=== PATIENT | male | born 1950 | race Caucasian/White ===

== ENCOUNTER 2017-12-12 10:54 | Outpatient (CLI) | payer OTHER, MEDICARE ==
--- NOTE | 2017-12-12 13:13 | ULT ---
ULTRASOUND ABDOMEN: Date: 12/12/17 HISTORY: Epigastric pain. Left upper quadrant pain. FINDINGS: The liver measures 19.4 cm in length with increased echogenicity consistent with fatty infiltration. No focal mass or intrahepatic ductal dilatation is seen. The spleen measures 12.2 cm in length with s mall echogenic foci indicative of chronic granulomatous disease. There is sludge in the gallbladder w ith gallbladder wall thickening measuring about 4.0 mm. No gallstones or pericholecystic fluid are se en. Common duct measures 7.0 mm in diameter. There is a 1.0 cm in the superior pole of the left kidne y. The right kidney and visualized portions of the IVC and aorta (proximal not seen) are unremarkable . The pancreas is not well visualized due to overlying bowel gas. No free fluid is identified. IMPRESSION: 1. Fatty liver. 2. Gallbladder sludge with wall thickening, but no evidence of gallstones. Evaluation with HIDA scan would be helpful. 3. Left renal cyst. POS: [facility]
== END 2017-12-12 10:55 | disposition home or self-care (01) ==
LOC: ULT 10:54
PROVIDERS: ATTEND Internal Medicine
DX: R10.12 Left upper quadrant pain (principal); K76.0 Fatty (change of) liver, not elsewhere classified; N28.1 Cyst of kidney, acquired; K82.8 Other specified diseases of gallbladder; Z79.899 Other long term (current) drug therapy; E78.01 Familial hypercholesterolemia; D64.9 Anemia, unspecified
CPT/HCPCS: 36415; 76700; 80076; 85025

== ENCOUNTER 2017-12-22 07:23 | Outpatient (CLI) | payer OTHER, MEDICARE ==
--- NOTE | 2017-12-22 09:48 | CT ---
CT ABDOMEN WITH AND WITHOUT IV CONTRAST CT PELVIS WITH IV CONTRAST: Date: 12-22-17 History: Gastroesophageal reflux. Patient also states left upper quadrant abdominal pain for three we eks. Comparison: 10-05-11 FINDINGS: There is minimal dependent bibasilar atelectasis. The liver demonstrates diminished attenuation suggesting diffuse fatty infiltration. There is a faint increased density lesion at the posterior aspect of the right hepatic lobe which demonstrates slight increased attenuation on the precontrast images. This may be attributable to the fatty infiltration of the liver. This lesion does demonstrate mild enhancement on the post contrast images. No additiona l hepatic lesion is seen. The subcentimeter lower density lesion in the lateral aspect right hepatic lobe on the prior CT in 2010 is not visualized on this exam. The spleen, pancreas, bilateral adrenal glands and kidneys demonstrate a normal CT appearance. There is minimal scarring involving the anterior aspect junction of the mid portion inferior pole of the ri ght kidney. Mild vascular calcifications are seen in the abdominal aorta. Urinary bladder is incompletely distended but otherwise grossly normal in appearance. There is colonic diverticulosis. There is circumferential thickening involving a small portion of the ascending colon approximately 10 cm from the sacral apex with suggestion of increased vascularity ad jacent to this region as well. This is worrisome for a neoplastic process. There is no evidence of lymphadenopathy, free fluid, or fluid collection seen in the abdomen or pelvi s. Mild degenerative changes are seen in the spine. No lytic or sclerotic osseous lesions are appreciate d. IMPRESSION: 1. Focal circumferential thickening in the ascending colon with increased vascularity. Findings are l ikely related to a neoplastic process involving the colon. Colonoscopy is recommended for further nayan luation. 2. Small heterogeneously enhancing lesion within the posterior right hepatic lobe. Given colonic mass , this is worrisome for a solitary metastatic lesion. 3. Fatty infiltration of the liver. 4. Fat containing bilateral inguinal hernias. 5. Colonic diverticulosis. 6. Above findings discussed with Dr. Avelar on 12-22-17 at 0819 hours. POS: [facility]
[2017-12-22] MEDS ORDERED: Iopamidol 370 76% 100 ML VIAL ONE (13:21)
== END 2017-12-22 07:24 | disposition home or self-care (01) ==
LOC: CT 07:23
PROVIDERS: ATTEND Internal Medicine Gastroenterology
DX: K21.9 Gastro-esophageal reflux disease without esophagitis (principal); R10.12 Left upper quadrant pain; R74.9 Abnormal serum enzyme level, unspecified; R91.1 Solitary pulmonary nodule; K76.0 Fatty (change of) liver, not elsewhere classified; K40.90 Unilateral inguinal hernia, without obstruction or gangrene, not specified as recurrent; K57.30 Diverticulosis of large intestine without perforation or abscess without bleeding
CPT/HCPCS: 72193; 74170

== ENCOUNTER 2017-12-23 07:27 | Day surgery (SDC) | payer OTHER, MEDICARE ==
[2017-12-22 14:04] VITALS: BMI 34.7
[2017-12-23] MEDS ORDERED: Propofol 200 MG/20 ML VIAL ONE (08:29)
[2017-12-23] MEDS ORDERED: Lidocaine 1% PF 5 ML VIAL ONE (08:29)
--- NOTE | 2017-12-23 16:51 | OP ---
PREPROCEDURE DIAGNOSES: 1. Left upper quadrant abdominal pain. 2. CAT scan concerning for a mass in the right colon. 3. 1 cm density in the right posterior lobe of the liver. 4. Normal liver function tests, normal lipase. POSTPROCEDURE DIAGNOSES: 1. Mild reflux esophagitis, LA grade A. 2. No evidence of right colon mass. 3. Mild diverticulosis without diverticulitis. 4. Diminutive polyp in sigmoid colon removed by cold snare polypectomy. RECOMMENDATIONS: 1. Await histopathology. Follow up in my office as scheduled next Tuesday. Await workup of abnorma l liver enzymes. 2. Continue proton-pump inhibitor. ANESTHESIA: TIVA. PROCEDURE IN DETAIL: After the patient was informed of the risks, benefits, possible complications o f endoscopy including perforation, bleeding, reactions to medication and aspiration, informed consent was obtained. The patient was brought to endoscopy suite where he was sedated in gradual fashion. Once he was comfortable, a bite block was placed in incisural orifice. The endoscope was advanced th rough the esophagus, stomach and second and third portion of duodenum. There was a mild LA grade A e sophagitis consistent with reflux. There were no deep erosions or ulcers. I do not think this expla ins the patient's pain. The stomach was entered and found to be normal in forward and retroflexed views. Duodenum was normal to third portion. The scope was removed. The patient was turned in the room. A rectal exam was performed. The Endoscope was advanced into th e anal canal through the colon to cecum. Terminal ileum was entered and found to be normal. The cec um area was normal. The right colon was normal in forward and retroflexed views. No mass was seen t o correlate with the findings on the CAT scan, I suspect that was related to contraction of the bowel . The remainder of the colon was normal except for mild diverticulosis without any signs of inflamma tion, acute or chronic. There was a diminutive 3 mm polyp in the sigmoid that was read by cold snare polypectomy and submitted to Pathology. Retroflexed views were normal. The scope was removed. The patient tolerated the procedure well without complications.
== END 2017-12-23 11:13 | disposition home or self-care (01) ==
LOC: SDC 07:27
PROVIDERS: ATTEND Internal Medicine Gastroenterology
PROC: 0DJ08ZZ Inspection of Upper Intestinal Tract, Via Natural or Artificial Opening Endoscopic (ICD-10-PCS; principal; 2017-12-23)
PROC: 0DBN8ZX Excision of Sigmoid Colon, Via Natural or Artificial Opening Endoscopic, Diagnostic (ICD-10-PCS; principal; 2017-12-23)
DX: D12.5 Benign neoplasm of sigmoid colon (principal); K21.0 Gastro-esophageal reflux disease with esophagitis; K57.30 Diverticulosis of large intestine without perforation or abscess without bleeding
CPT/HCPCS: 88305; J2001; J2704

== ENCOUNTER 2018-08-22 08:24 | Outpatient (CLI) | payer OTHER, MEDICARE ==
[2018-08-22 08:46] LABS: Estimated GFR-MDRD - POC Greater than 90
[2018-08-22] MEDS ORDERED: Iopamidol 370 76% 100 ML VIAL ONE (09:59)
--- NOTE | 2018-08-22 10:49 | CT ---
CT ABDOMEN WITH AND WITHOUT IV CONTRAST: HISTORY: A 67-year-old male with nonalcoholic steatohepatitis, abnormal CT scan of 12/22/2017, and type 2 diab etes mellitus without complications. COMPARISON: 12/22/2017 FINDINGS: Minimal bibasilar atelectatic changes are again seen. The previously noted changes of fatty infiltr ation of the liver are not seen on the current exam (on the pre-contrast or the post-contrast images) . The 2.8 cm, enhancing lesion in the posterior segment of the right lobe of the liver is stable. N o new liver masses are seen. The spleen, pancreas, and adrenal glands are normal. There is a small, low density lesion in the le ft kidney, likely cyst. No calcified gallstones are seen. No free air, free fluid, or lymphadenopat hy is noted in the abdomen or pelvis. There are scattered colonic diverticula. Vascular calcificati ons are present without evidence of aneurysmal dilatation of the abdominal aorta. There are degenera tive changes in the spine. Scarring at the anterior aspect of the junction of the mid portion and in ferior pole of the right kidney is again seen. There is suggestion of a punctate calculus in the rig ht kidney. IMPRESSION: 1. Stable, enhancing liver lesion. 2. Punctate, nonobstructing right renal calculus. 3. Small left renal cyst. 4. Colonic diverticulosis. POS: [facility]
== END 2018-08-22 08:25 | disposition home or self-care (01) ==
LOC: CT 08:24
PROVIDERS: ATTEND Internal Medicine Gastroenterology
DX: K76.0 Fatty (change of) liver, not elsewhere classified (principal); R93.3 Abnormal findings on diagnostic imaging of other parts of digestive tract; E11.9 Type 2 diabetes mellitus without complications; N20.0 Calculus of kidney; N28.1 Cyst of kidney, acquired; K57.30 Diverticulosis of large intestine without perforation or abscess without bleeding
CPT/HCPCS: 36415; 74170; 80076; 82565; 83036

== ENCOUNTER → 2019-08-20 | Day surgery (SDC) | payer OTHER, MEDICARE ==
[~2019-08-20] MED LIST: Fentanyl 100 MCG/2 ML VIAL ONE; Heparin 10,000 UNITS/1 ML VIAL ONE; Iopamidol 370 76% 100 ML VIAL ONE; Lidocaine 2 gm/D5W 500 ml 500 ML ONE; Midazolam HCl 2 mg/2 ml Vial ONE; Nitroglycerin 100MG/250ML BOT 250 ML ONE; Verapamil 5 MG/2 ML VIAL ONE; cloNIDine 0.1 MG TAB PO SCH
[2019-08-20 13:32] VITALS: BMI 34.2
[2019-08-20 14:11] LABS: #Basophils 0.1 thou/uL (0.0-0.2); #Eosinphils 0.5 thou/uL (0.0-0.7); #Lymphocytes 3.1 thou/uL (1.20-3.40); #Monocytes 0.7 thou/uL (0.11-0.59); #Neutrophils 3.6 thou/uL (1.40-6.50); %Basophils 1.7 % (0.0-1.0); %Lymphocytes 38.3 % (21.0-51.0); %Monocytes 9.3 % (0.0-10.0); %Neutrophils 44.7 % (42.0-75.0); Hemoglobin 15.6 g/dL (14.0-18.0); Mean Corpuscular HGB CONC 33.3 g/dL (32.0-36.0); Mean Corpuscular Hemoglobin 28.4 pg (27.0-31.0); Mean Corpuscular Volume 85.1 fL (78.0-98.0); Mean Platelet Volume 8.3 fL (7.4-10.4); Platelet Count 178 thou/uL (130-400); RBC Distribution Width 12.6 % (11.5-14.5)
[2019-08-20 14:37] LABS: ALT (SGPT) 35 U/L (8-55); AST (SGOT) 29 U/L (5-34); Albumin 4.6 g/dL (3.4-4.8); Alkaline Phosphatase 63 U/L (40-110); Anion Gap 15 mmol/L (10-20); BUN (Urea Nitrogen) 14 mg/dL (8.4-25.7); Bilirubin, Total 0.9 mg/dL (0.2-1.2); Calc. Creatinine Clearance 142 mL/min (70-130); Calcium 10.2 mg/dL (7.8-10.44); Carbon Dioxide 24 mmol/L (23-31); Chloride 104 mmol/L (98-107); Estimated GFR-MDRD Greater than 90; Globulin 2.7 g/dL (2.4-3.5); Glucose 95 mg/dL (80-115); Protein, Total 7.3 g/dL (5.8-8.1); Sodium 139 mmol/L (136-145)
== END ==
LOC: CCL 12:26
PROVIDERS: ATTEND Internal Medicine Cardiovascular Disease
PROC: 4A023N7 Measurement of Cardiac Sampling and Pressure, Left Heart, Percutaneous Approach (ICD-10-PCS; principal; 2019-08-20)
PROC: B2111ZZ Fluoroscopy of Multiple Coronary Arteries using Low Osmolar Contrast (ICD-10-PCS; principal; 2019-08-20)
DX: I25.119 Atherosclerotic heart disease of native coronary artery with unspecified angina pectoris (principal); I10 Essential (primary) hypertension; E11.9 Type 2 diabetes mellitus without complications; J45.909 Unspecified asthma, uncomplicated; Z79.4 Long term (current) use of insulin; Z79.82 Long term (current) use of aspirin; Z79.899 Other long term (current) drug therapy; Z77.090 Contact with and (suspected) exposure to asbestos
CPT/HCPCS: 76942; 80053; 85025; 85347; 93458; 99152; C1769; J1644; J2001; J2250; J3010; Q9967

== ENCOUNTER 2019-09-04 09:25 | Outpatient (CLI) | payer OTHER, MEDICARE ==
--- NOTE | 2019-09-04 09:43 | RAD ---
EXAM: Chest 2 views: HISTORY: Dyspnea COMPARISON: None. FINDINGS: There is a normal-sized cardiomediastinal silhouette. There is no evidence of consolidation, mass, or pleural effusion. The bones are unremarkable. IMPRESSION: No evidence of acute cardiopulmonary disease
== END 2019-09-04 09:26 | disposition home or self-care (01) ==
LOC: RAD 09:25
PROVIDERS: ATTEND Internal Medicine Critical Care Medicine
DX: R06.00 Dyspnea, unspecified (principal)
CPT/HCPCS: 71046

== ENCOUNTER 2021-02-05 09:17 | Outpatient (CLI) | payer OTHER, MEDICARE | END 2021-02-05 09:18 | disposition home or self-care (01) | LOC: BICULT 09:17 | PROVIDERS: ATTEND Physician Assistant Medical | DX: K75.81 Nonalcoholic steatohepatitis (NASH) (principal); K76.9 Liver disease, unspecified; R10.13 Epigastric pain; R10.12 Left upper quadrant pain; E11.9 Type 2 diabetes mellitus without complications; R16.0 Hepatomegaly, not elsewhere classified | CPT/HCPCS: 76705 ==

== ENCOUNTER 2021-02-13 08:27 | Outpatient (CLI) | payer OTHER, MEDICARE ==
[2021-02-13] MEDS ORDERED: Magnevist 469MG/ML 20 ML VIAL ONE (12:37)
== END 2021-02-13 08:28 | disposition home or self-care (01) ==
LOC: MRI 08:27
PROVIDERS: ATTEND Physician Assistant Medical
DX: R16.0 Hepatomegaly, not elsewhere classified (principal)
CPT/HCPCS: 74183; A9579

== ENCOUNTER 2022-04-16 09:50 | Outpatient (CLI) | payer BC, MEDICARE ==
[2022-04-16 10:55] LABS: #Basophils 0.1 10x3/uL (0.0-0.2); #Eosinphils 0.2 10x3/uL (0.0-0.5); #Monocytes 0.7 10x3/uL (0.0-1.1); #Neutrophils 2.3 10x3/uL (1.5-8.4); %Basophils 1.6 % (0.0-2.0); %Eosinophils 3.9 % (0.0-6.0); %Lymphocytes 36.3 % (18.0-47.0); %Monocytes 12.7 % (0.0-10.0); %Neutrophils 44.9 % (40.0-75.0); Mean Corpuscular HGB CONC 34.2 g/dL (32.0-36.0); Mean Corpuscular Volume 81.8 fl (81.2-95.1); Mean Platelet Volume 10.6 fl (7.4-10.4); Platelet Count 149 10x3/uL (150-450); RBC Distribution Width 13.8 % (11.5-14.5); Red Blood Cell (RBC) Count 5.72 10x6/uL (4.32-5.72); White Blood Cell (WBC) Count 5.1 10x3/uL (3.5-10.5)
[2022-04-16 11:09] LABS: Anion Gap 15 mmol/L (10-20); BUN (Urea Nitrogen) 17 mg/dL (8.4-25.7); Calc. Creatinine Clearance 0 mL/min (70-130); Calcium 9.8 mg/dL (7.8-10.44); Carbon Dioxide 23 mmol/L (23-31); Chloride 104 mmol/L (98-107); Glucose 153 mg/dL (83-110); Potassium 4.3 mmol/L (3.5-5.1); Sodium 138 mmol/L (136-145)
== END 2022-04-16 09:51 | disposition home or self-care (01) ==
LOC: LABBT 09:50
PROVIDERS: ATTEND Specialist
DX: Z01.818 Encounter for other preprocedural examination (principal); K43.9 Ventral hernia without obstruction or gangrene; Z20.822 Contact with and (suspected) exposure to COVID-19
CPT/HCPCS: 80048; 85025; 93005; 93010; U0003; U0005

== ENCOUNTER 2022-04-20 06:25 | Day surgery (SDC) | payer BC, MEDICARE ==
[2022-04-20] MEDS ORDERED: Acetaminophen 500 MG TAB ONE ×2 (07:02→07:03)
[2022-04-20] MEDS ORDERED: Ketorolac Tromethamine 30 MG/ML VIAL ONE (07:03)
[2022-04-20] MEDS ORDERED: Lidocaine 1% w/Epinephrine 1:100K 20 ML VIAL ONE (08:55)
[2022-04-20] MEDS ORDERED: Bupivacaine 0.25% HCL 30 ML VIAL ONE (08:55)
[2022-04-20] MEDS ORDERED: fentaNYL Citrate/PF 100 MCG/2 ML SYRINGE ONE (09:02)
[2022-04-20] MEDS ORDERED: SUGAMMADEX SODIUM 200 MG/2 ML VIAL ONE (09:02)
[2022-04-20] MEDS ORDERED: HYDROmorphone 2 MG/ML VIAL ONE (09:02)
[2022-04-20] MEDS ORDERED: CEFAZOLIN 2 GM VIAL ONE (09:06)
[2022-04-20] MEDS ORDERED: Sodium Chloride 0.9% 100 ML ONE (09:06)
[2022-04-20] MEDS ORDERED: Ketamine 50 MG/ML (10ML VIAL) ONE (09:09)
[2022-04-20] MEDS ORDERED: Dexmedetomidine 200 MCG/2 ML VIAL ONE (09:12)
[2022-04-20] MEDS ORDERED: ePHEDrine 50 MG/ML VIAL ONE (09:22)
[2022-04-20] MEDS ORDERED: Ondansetron PF 4 MG/2 ML Vial ONE (09:22)
[2022-04-20] MEDS ORDERED: Rocuronium Bromide 10 MG/ML (10ML VIAL) ONE (09:22)
[2022-04-20] MEDS ORDERED: PROPOFOL 200 MG/20 ML VIAL ONE (09:22)
[2022-04-20] MEDS ORDERED: PHENYLEPHRINE-NS 100 MCG/ML 10 ML SYRINGE ONE (09:22)
[2022-04-20] MEDS ORDERED: Lidocaine 1% PF 5 ML VIAL ONE (09:22)
[2022-04-20] MEDS ORDERED: diphenhydrAMINE 25 MG CAP PO PRN ×2 (12:52)
[2022-04-20] MEDS ORDERED: Ondansetron PF 4 MG/2 ML Vial IVP PRN ×3 (12:52→13:05)
[2022-04-20] MEDS ORDERED: diphenhydrAMINE 50 MG/ML VIAL IM PRN ×2 (12:52)
[2022-04-20] MEDS ORDERED: diphenhydrAMINE 50 MG/ML VIAL IVP PRN ×2 (12:52)
[2022-04-20] MEDS ORDERED: Naloxone HCl 0.4 mg/ml Vial IV PRN ×2 (12:52)
[2022-04-20] MEDS ORDERED: Promethazine HCl 25 MG/ML VIAL IVPB PRN (12:52)
[2022-04-20] MEDS ORDERED: Promethazine HCl 25 MG/ML VIAL IM PRN ×3 (12:52)
[2022-04-20] MEDS ORDERED: Ondansetron HCl/PF 4 MG/2 ML Vial IVP PRN (12:52)
[2022-04-20] MEDS ORDERED: Zolpidem Tartrate 5 MG TAB PO PRN ×2 (12:52)
[2022-04-20] MEDS ORDERED: fentaNYL Citrate/PF 2,000 MCG in Sodium Chloride 0.9% 60 ML IV PRN (12:52)
[2022-04-20] MEDS ORDERED: Communication Order-Pharmacy FS SCH ×2 (13:00)
[2022-04-20] MEDS ORDERED: Fentanyl 100 MCG/2 ML VIAL ONE (13:03)
[2022-04-20] MEDS ORDERED: Dextrose 50% Abboject 50 ML SYRINGE SLOW IVP PRN (13:05)
[2022-04-20] MEDS ORDERED: Dextrose 5% in Water 1,000 ML IV PRN (13:05)
[2022-04-20 16:31] VITALS: BMI 34.4
[2022-04-20] MEDS: Sodium Chloride 0.9% 1,000 ML IV SCH ×2 (17:54→20:46)
[2022-04-21] MEDS: Sodium Chloride 0.9% 1,000 ML IV SCH ×3 (06:17→19:30)
[2022-04-21] MEDS: HumaLOG 300 UNITS/3 ML VIAL SC PRN ×2 (06:23→17:36)
[2022-04-21 07:01] LABS: #Eosinphils 0.2 thou/uL (0.0-0.7); #Monocytes 0.8 thou/uL (0.11-0.59); #Neutrophils 7.4 thou/uL (1.40-6.50); %Basophils 0.2 % (0.0-1.0); %Eosinophils 1.7 % (0.0-10.0); %Monocytes 8.5 % (0.0-10.0); %Neutrophils 78.5 % (42.0-75.0); Hemoglobin 15.3 g/dL (14.0-18.0); Mean Corpuscular Hemoglobin 29.1 pg (27.0-31.0); Mean Corpuscular Volume 91.1 fL (78.0-98.0); Mean Platelet Volume 8.6 fL (7.4-10.4); Platelet Count 146 thou/uL (130-400); RBC Distribution Width 13.5 % (11.5-14.5); Red Blood Cell (RBC) Count 5.25 mill/uL (4.70-6.10); White Blood Cell (WBC) Count 9.4 thou/uL (4.8-10.8)
[2022-04-21 07:22] LABS: Anion Gap 16 mmol/L (10-20); BUN (Urea Nitrogen) 14 mg/dL (8.4-25.7); Calc. Creatinine Clearance 155 mL/min (70-130); Calcium 8.6 mg/dL (7.8-10.44); Carbon Dioxide 20 mmol/L (23-31); Chloride 104 mmol/L (98-107); Estimated GFR 97; Glucose 199 mg/dL (83-110); Sodium 136 mmol/L (136-145)
[2022-04-21] MEDS ORDERED: Non-Formulary Item 1 EACH (Insulin Degludec [Tresiba Flextouch U-100] 100 UNIT/ML Insuln. SQ SCH (09:00)
[2022-04-21] MEDS ORDERED: Amlodipine 5 MG TAB PO SCH (09:00)
[2022-04-21] MEDS ORDERED: Non-Formulary Item 1 EACH (Losartan Potassium [Losartan Potassium] 50 MG Tablet) PO SCH (09:00)
[2022-04-21] MEDS: Empagliflozin 25 MG TAB PO SCH (10:26)
[2022-04-21] MEDS: Losartan 25 MG TAB PO SCH (10:26)
[2022-04-21] MEDS: Insulin Glargine 30 UNITS/0.3 ML VIAL SC SCH (10:27)
[2022-04-21] MEDS: Amlodipine 10 MG TAB PO SCH (10:27)
[2022-04-21] MEDS ORDERED: metFORMIN 850 MG TAB PO SCH (17:00)
[2022-04-21] MEDS: metFORMIN 500 MG TAB PO SCH (17:36)
[2022-04-21] MEDS ORDERED: Tamsulosin HCl 0.4 MG CAP PO SCH (21:00)
[2022-04-22] MEDS: HumaLOG 300 UNITS/3 ML VIAL SC PRN (05:03)
[2022-04-22] MEDS: Sodium Chloride 0.9% 1,000 ML IV SCH (05:06)
[2022-04-22 06:52] LABS: Anion Gap 16 mmol/L (10-20); BUN (Urea Nitrogen) 14 mg/dL (8.4-25.7); Calc. Creatinine Clearance 151 mL/min (70-130); Calcium 9.1 mg/dL (7.8-10.44); Carbon Dioxide 20 mmol/L (23-31); Chloride 104 mmol/L (98-107); Estimated GFR 96; Glucose 193 mg/dL (83-110); Potassium 4.2 mmol/L (3.5-5.1); Sodium 136 mmol/L (136-145)
[2022-04-22] MEDS: metFORMIN 500 MG TAB PO SCH (08:58)
[2022-04-22] MEDS: Losartan 25 MG TAB PO SCH (08:58)
[2022-04-22] MEDS: Amlodipine 10 MG TAB PO SCH (08:58)
[2022-04-22] MEDS: Insulin Glargine 30 UNITS/0.3 ML VIAL SC SCH (08:59)
[2022-04-22] MEDS: Empagliflozin 25 MG TAB PO SCH (08:59)
[2022-04-22 12:13] VITALS: BP 160/87; TEMP 98.4
== END 2022-04-22 12:35 | disposition home or self-care (01) ==
LOC: SDC 06:25 → UNDOADMOB 09:40 → T4-A 09:40 → UNDODISOB 04-22 12:35 → SDC 04-22 12:35
PROVIDERS: ATTEND Specialist
PROC: 0WUF0JZ Supplement Abdominal Wall with Synthetic Substitute, Open Approach (ICD-10-PCS; principal; 2022-04-20)
DX: K43.2 Incisional hernia without obstruction or gangrene (principal); K66.0 Peritoneal adhesions (postprocedural) (postinfection); I10 Essential (primary) hypertension; E78.5 Hyperlipidemia, unspecified; E11.9 Type 2 diabetes mellitus without complications; I25.10 Atherosclerotic heart disease of native coronary artery without angina pectoris; K21.9 Gastro-esophageal reflux disease without esophagitis; G47.33 Obstructive sleep apnea (adult) (pediatric); E66.8 Other obesity; Z68.34 Body mass index [BMI] 34.0-34.9, adult; Z85.05 Personal history of malignant neoplasm of liver; Z79.4 Long term (current) use of insulin; Z79.84 Long term (current) use of oral hypoglycemic drugs; Z79.899 Other long term (current) drug therapy; Z88.8 Allergy status to other drugs, medicaments and biological substances
CPT/HCPCS: 36415; 36416; 80048; 85025; C1713; C1781; J0690; J1170; J1200; J1815; J1885; J2405; J2704; J3010; J3490; J7050; S0020

== ENCOUNTER 2022-10-29 06:37 | Day surgery (SDC) | payer BC, MEDICARE ==
[2022-10-28 12:13] VITALS: BMI 33.0
[2022-10-29] MEDS ORDERED: Lidocaine 1% MPF 2 ML VIAL ONE (06:57)
[2022-10-29] MEDS ORDERED: Lidocaine 1% PF 5 ML VIAL ONE (08:30)
[2022-10-29] MEDS ORDERED: PROPOFOL 200 MG/20 ML VIAL ONE (08:30)
== END 2022-10-29 09:45 | disposition home or self-care (01) ==
LOC: SDC 06:37
PROVIDERS: ATTEND Internal Medicine Gastroenterology
PROC: 0DJ08ZZ Inspection of Upper Intestinal Tract, Via Natural or Artificial Opening Endoscopic (ICD-10-PCS; principal; 2022-10-29)
DX: C22.0 Liver cell carcinoma (principal); K44.9 Diaphragmatic hernia without obstruction or gangrene; K22.2 Esophageal obstruction; G47.33 Obstructive sleep apnea (adult) (pediatric); I10 Essential (primary) hypertension; E11.9 Type 2 diabetes mellitus without complications; K21.9 Gastro-esophageal reflux disease without esophagitis; N40.0 Benign prostatic hyperplasia without lower urinary tract symptoms; E78.00 Pure hypercholesterolemia, unspecified; E66.9 Obesity, unspecified; Z68.33 Body mass index [BMI] 33.0-33.9, adult; Z79.4 Long term (current) use of insulin; Z79.84 Long term (current) use of oral hypoglycemic drugs; Z79.899 Other long term (current) drug therapy; Z88.8 Allergy status to other drugs, medicaments and biological substances
CPT/HCPCS: 36416; J2704

== ENCOUNTER 2023-12-24 16:53 | Emergency (ER) | payer MEDICARE, OTHER ==
[~2023-12-24 16:53] MED LIST changes: -Fentanyl 100 MCG/2 ML VIAL ONE; -Heparin 10,000 UNITS/1 ML VIAL ONE; -Iopamidol 370 76% 100 ML VIAL ONE; +Iopamidol-370 76% 500 ML MDV (1 ML CHARGE) ONE; -Lidocaine 2 gm/D5W 500 ml 500 ML ONE; -Midazolam HCl 2 mg/2 ml Vial ONE; -Nitroglycerin 100MG/250ML BOT 250 ML ONE; -Verapamil 5 MG/2 ML VIAL ONE; -cloNIDine 0.1 MG TAB PO SCH
[2023-12-24] MEDS ORDERED: Lidocaine/Transparent Dressing 1 EACH KIT ONE (17:19)
[2023-12-24 18:14] LABS: #Basophils 0.1 thou/uL (0.0-0.2); #Eosinphils 0.1 thou/uL (0.0-0.7); #Monocytes 0.9 thou/uL (0.11-0.59); #Neutrophils 8.4 thou/uL (1.40-6.50); %Basophils 0.5 % (0.0-1.0); %Eosinophils 0.6 % (0.0-10.0); %Lymphocytes 14.3 % (21.0-51.0); %Monocytes 8.3 % (0.0-10.0); %Neutrophils 75.8 % (42.0-75.0); Hematocrit 37.5 % (42.0-52.0); Hemoglobin 12.7 g/dL (14.0-18.0); Mean Corpuscular HGB CONC 33.9 g/dL (32.0-36.0); Mean Corpuscular Hemoglobin 28.7 pg (27.0-31.0); Mean Corpuscular Volume 84.8 fl (78.0-98.0); Mean Platelet Volume 10.8 fL (7.4-10.4); Platelet Count 172 10x3/uL (130-400); RBC Distribution Width 14.3 % (11.5-14.5); Red Blood Cell (RBC) Count 4.42 mill/uL (4.70-6.10); White Blood Cell (WBC) Count 11.1 10x3/uL (4.8-10.8)
[2023-12-24 18:24] LABS: INR-International Normal Ratio 1.1; Prothrombin Time 13.7 sec (12.0-14.7)
[2023-12-24 18:25] LABS: PTT 26.8 sec (22.9-36.1)
[2023-12-24 18:38] LABS: ALT (SGPT) 36 U/L (8-55); AST (SGOT) 26 U/L (5-34); Albumin 3.4 g/dL (3.4-4.8); Alkaline Phosphatase 59 U/L (40-110); Anion Gap 16 mmol/L (10-20); BUN (Urea Nitrogen) 28 mg/dL (8.4-25.7); Bilirubin, Total 0.6 mg/dL (0.2-1.2); Calc. Creatinine Clearance 0 mL/min (70-130); Carbon Dioxide 20 mmol/L (23-31); Chloride 103 mmol/L (98-107); Estimated GFR 54; Globulin 2.4 g/dL (2.4-3.5); Glucose 305 mg/dL (83-110); Lipase 33 U/L (8-78); Potassium 4.1 mmol/L (3.5-5.1); Protein, Total 5.8 g/dL (5.8-8.1); Sodium 135 mmol/L (136-145)
[2023-12-24] MEDS ORDERED: Morphine 4 MG/ML VIAL ONE (20:11)
[2023-12-24] MEDS ORDERED: Ondansetron PF 4 MG/2 ML Vial ONE (20:21)
[2023-12-24] MEDS ORDERED: Lidocaine 1% PF 5 ML VIAL ONE (21:22)
[2023-12-24 21:32] LABS: Lactic Acid 1.5 mmol/L (0.5-2.2)
[2023-12-24] MEDS ORDERED: fentaNYL 50 mcg/mL 1 mL Vial ONE (21:44)
== END 2023-12-25 00:48 | disposition short-term general hospital (02) ==
LOC: ERS 16:53
DX: K66.1 Hemoperitoneum (principal); K76.89 Other specified diseases of liver; E11.9 Type 2 diabetes mellitus without complications; E78.5 Hyperlipidemia, unspecified; I10 Essential (primary) hypertension; Z79.84 Long term (current) use of oral hypoglycemic drugs; Z79.899 Other long term (current) drug therapy
CPT/HCPCS: 36430; 71275; 74177; 80053; 83605; 83690; 84484; 85025; 85610; 85730; 86850; 86900; 86901; 86920; 93005; J3010; P9016; P9048; 96374; J2270; J2405